=== PATIENT | female | born 1995 | race African-American/Black ===

== ENCOUNTER 2018-03-10 02:50 | Inpatient (IN) | payer OTHER ==
[2018-03-10] MEDS ORDERED: BUTORPHANOL TARTRATE 1 MG/ML VIAL IVPUSH ONE (04:10)
[2018-03-10] MEDS ORDERED: PROMETHAZINE HCL 25 MG/1 ML VIAL IVPUSH ONE (04:10)
[2018-03-10] MEDS ORDERED: ELECTROLYTE-148 SOLN 500 ML IV ONE (04:10)
[2018-03-10 04:42] LABS: BASO % 0.3 % (0-2.0); EOS % 1.6 % (0-4.5); HEMATOCRIT 37.3 % (32.4-45.2); HEMOGLOBIN 12.4 GM/dL (10.7-15.3); LYMPH % 29.3 % (8-40); MCH 32.3 pg (25.7-33.7); MCHC 33.4 g/dl (32.0-36.0); MEAN CELL VOLUME 96.9 fl (80-96); MEAN PLT VOLUME 12.8 fl (7.5-11.1); MONO % 11.5 % (3.8-10.2); NEUT % 57.3 % (42.8-82.8); PLATELET COUNT 120 K/MM3 (134-434); RBC 3.85 M/mm3 (3.60-5.2); RDW 13.7 % (11.6-15.6); WHITE BLOOD COUNT 6.7 K/mm3 (4.0-10.0)
[2018-03-10] MEDS: ELECTROLYTE-148 SOLN 1,000 ML IV SCH ×4 (05:00→16:00)
[2018-03-10 05:01] VITALS: BMI 34.7
[2018-03-10] MEDS ORDERED: BUTORPHANOL TARTRATE 1 MG/ML VIAL ONE ×2 (05:23)
[2018-03-10] MEDS ORDERED: PROMETHAZINE HCL 25 MG/1 ML VIAL ONE (05:23)
--- NOTE | 2018-03-10 06:55 | PN ---
Progress Note (short form) - Note Progress Note: cx 8 cm 100 vx -2mi , bulging , fhr cat 1, arom , clear, expect vaginal delivery
--- NOTE | 2018-03-10 07:03 | HP ---
Past Medical History - Primary Care Physician PCP:: Gilson Olmedo - Admission Chief Complaint: 39 weeks, labor, previous c/s, requesting History of Present Illness: 22 yo f 39.3weeks in labor ,previous c/s 2009 LST c/s ,in labor , requesting , aware risks of , rupture uterus, and maternal comprise, cx on admission 3 cm 80 vx -3 mi, fhr cat 1, irregular contraction History Source: Patient Limitations to Obtaining History: No Limitations - Past Medical History ...: 2 ...Para: 1 ...Term: 1 ...: 0 ...Spon : 0 ...Induced : 0 ...Multiple Gestation: 0 ...LMP: 06/09/17 ... Weeks Gestation by Dates: 39.3 ...EDC by Dates: 03/13/18 ...EDC by Sono: 03/13/18 - Past Surgical History Past Surgical History: Yes: Hx Myomectomy: No Hx Transabdominal Cerclage: No - Smoking History Smoking history: Never smoked Have you smoked in the past 12 months: No - Alcohol/Substance Use Hx Alcohol Use: No - Social History History of Recent Travel: No Home Medications - Allergies Allergies/Adverse Reactions: Allergies Allergy/AdvReac Type Severity Reaction Status Date / Time No Known Allergies Allergy Verified 01/06/18 21:41 - Home Medications Home Medications: Ambulatory Orders Iron,Carb/Vit C/Vit B12/Folic [Iron 100 Plus Tablet] 1 tab PO BID 01/06/18 19 Tablet 1 tab PO DAILY 01/06/18 Review of Systems - Review of Systems Constitutional: reports: No Symptoms Eyes: reports: No Symptoms HENT: reports: No Symptoms Neck: reports: No Symptoms Cardiovascular: reports: No Symptoms Respiratory: reports: No Symptoms Gastrointestinal: reports: No Symptoms Genitourinary: reports: No Symptoms Breasts: reports: No Symptoms Reported Musculoskeletal: reports: No Symptoms Integumentary: reports: No Symptoms Neurological: reports: No Symptoms Endocrine: reports: No Symptoms Hematology/Lymphatic: reports: No Symptoms Psychiatric: reports: No Symptoms Physical Exam - Maternity Vital Signs: Vital Signs Temperature 97.8 F 03/10/18 04:10 Pulse Rate 69 03/10/18 05:00 Respiratory Rate 20 03/10/18 05:00 Blood Pressure 135/63 03/10/18 05:00 O2 Sat by Pulse Oximetry (%) Constitutional: Yes: Well Nourished, No Distress, Calm Eyes: Yes: WNL, Conjunctiva Clear, EOM Intact HENT: Yes: WNL, Atraumatic, Normocephalic Neck: Yes: WNL, Supple, Trachea Midline Cardiovascular: Yes: WNL, Regular Rate and Rhythm Breast(s): Yes: WNL - Abdominal Exam/OB Fundal Height: 38 Number of Fetuses: Single Presentation: Vertex Contractions: Yes Regularity: Irregular Monitor Mode: External Heart Rate Location: [facility] Category: I Accelerations: Uniform Decelerations: None - Vaginal Exam/OB Vaginal Bleediing: No Speculum Exam: No Dilatation (cm): 3 cm Effacement (%): 80 Amniotic Membrane Status: Intact Presentation: Vertex/Position Station: -3 - Physical Exam Musculoskeletal: Yes: WNL Extremities: Yes: WNL Edema: LLE: Trace, RLE: Trace Deep Tendon Reflex Grade: Normal +2 ...Motor Strength: WNL Psychiatric: Yes: WNL - Labs Lab Results: CBC, BMP 03/10/18 04:30 03/10/18 04:30 Hemorrhage Risk Assessment - Risk Factors Medium Risk Factors: Yes: None High Risk Factors: Yes: None Risk Score: 1 Risk Level: Medium Risk Problem List - Problems (1) with 39 completed weeks gestation Code(s): Z3A.39 - 39 WEEKS GESTATION OF (2) Previous section complicating Code(s): O34.219 - MATERNAL CARE FOR UNSP TYPE SCAR FROM PREVIOUS DEL (3) Declines vaginal after trial Code(s): O34.219 - MATERNAL CARE FOR UNSP TYPE SCAR FROM PREVIOUS DEL Assessment/Plan admit, fhm, pain mamnagement, risks of discussed
[2018-03-10] MEDS ORDERED: FENTANYL/BUPIVACAINE/NS/PF - PCEA - 50 ML DISP.SYRIN EP ONE (08:26)
--- NOTE | 2018-03-10 08:26 | PN ---
Progress Note (short form) - Note Progress Note: cx 8 cm 100 vx -2 mr, clear, requesting episural , fhr cat 1 Problem List - Problems (1) with 39 completed weeks gestation Code(s): Z3A.39 - 39 WEEKS GESTATION OF (2) Previous section complicating Code(s): O34.219 - MATERNAL CARE FOR UNSP TYPE SCAR FROM PREVIOUS DEL (3) Declines vaginal after trial Code(s): O34.219 - MATERNAL CARE FOR UNSP TYPE SCAR FROM PREVIOUS DEL
[2018-03-10 08:55] LABS: INR 0.89 (0.83-1.09); PROTHROMBIN TIME (PATIENT) 10.5 SEC (9.7-13.0)
[2018-03-10 08:59] LABS: ACTIVATED PTT 26.1 SECONDS (25.2-36.5)
[2018-03-10 09:03] LABS: BASO % 0.2 % (0-2.0); EOS % 0.3 % (0-4.5); HEMATOCRIT 36.3 % (32.4-45.2); HEMOGLOBIN 12.2 GM/dL (10.7-15.3); LYMPH % 12.2 % (8-40); MCH 32.6 pg (25.7-33.7); MCHC 33.7 g/dl (32.0-36.0); MEAN CELL VOLUME 96.7 fl (80-96); MEAN PLT VOLUME 11.8 fl (7.5-11.1); MONO % 6.1 % (3.8-10.2); NEUT % 81.2 % (42.8-82.8); PLATELET COUNT 122 K/MM3 (134-434); RBC 3.76 M/mm3 (3.60-5.2); RDW 13.9 % (11.6-15.6); WHITE BLOOD COUNT 8.5 K/mm3 (4.0-10.0)
[2018-03-10 09:10] LABS: ANION GAP 11 MMOL/L (8-16); BLOOD UREA NITROGEN 8 mg/dL (7-18); CALCIUM 8.6 mg/dL (8.5-10.1); CHLORIDE 106 mmol/L (98-107); CO2 22 mmol/L (21-32); CREATININE 0.6 mg/dL (0.55-1.3); GLUCOSE,RANDOM 76 mg/dL (74-106); SODIUM 139 mmol/L (136-145)
--- NOTE | 2018-03-10 13:37 | PN ---
Progress Note, Labor Vaginal Exam #3 Labor Exam Date: 03/10/18 Labor Exam Time: 13:32 Heart Rate (range): Cat II Dilatation: 10 Effacement (%): 100 Amniotic Membrane Status: Ruptured Station: 0 Remarks: Cat II tracing with intermittent variable decelerations, moderate variability throughout Attempted pushing x 10 minutes with no descent Will give IV bolus, labor down and reasses in one hour Austin Ribeiro MD
--- NOTE | 2018-03-10 14:13 | PN ---
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 fhr cat 1 Problem List - Problems (1) with 39 completed weeks gestation Code(s): Z3A.39 - 39 WEEKS GESTATION OF (2) Previous section complicating Code(s): O34.219 - MATERNAL CARE FOR UNSP TYPE SCAR FROM PREVIOUS DEL (3) Declines vaginal after trial Code(s): O34.219 - MATERNAL CARE FOR UNSP TYPE SCAR FROM PREVIOUS DEL
--- NOTE | 2018-03-10 14:57 | PN ---
Progress Note, Labor Vaginal Exam #3 Labor Exam Date: 03/10/18 Labor Exam Time: 14:54 Heart Rate (range): Cat II Dilatation: 10 Effacement (%): 0 Amniotic Membrane Status: Ruptured Station: 0 Remarks: Cat II tracing, tachycardia now No descent, still 0 station Will start pushing, but low suspicion of successful TOLAC
--- NOTE | 2018-03-10 15:39 | PN ---
Progress Note, Labor Vaginal Exam #4 Labor Exam Date: 03/10/18 Labor Exam Time: 15:36 Heart Rate (range): Cat II Dilatation: 10 Effacement (%): 100 Amniotic Membrane Status: Ruptured Station: 0 Remarks: Called by RN, patient REFUSED to push. Now asking for Persistent Cat II tracing, failure to descend, maternal refusal to cooperate and try pushing. Will proceed to OR for RLTCS
[2018-03-10] MEDS ORDERED: CITRIC ACID/SODIUM CITRATE 30 ML UNIT-DOSE CUP PO ONE (15:42)
[2018-03-10] MEDS ORDERED: CEFAZOLIN 2 GM/D5W 2 GM/50 ML ML IVPB ONE (15:43)
[2018-03-10] MEDS ORDERED: OXYTOCIN 10 UNITS/ML VIAL ONE (15:47)
[2018-03-10] MEDS ORDERED: OXYTOCIN 20 UNITS in 0.9% NS 20 UNIT/1,000 ML INFUS.BAG IV ONE (15:47)
[2018-03-10] MEDS ORDERED: morphine SULFATE/Preservative Free 0.5 MG/ML (1cc Syringe) ONE (15:50)
[2018-03-10] MEDS ORDERED: PHENYLEPHRINE HCL 10 MG/1 ML SINGLE DOSE VIAL ONE (15:56)
[2018-03-10] MEDS ORDERED: ONDANSETRON 4 MG/2 ML VIAL IVPUSH PRN (16:48)
[2018-03-10] MEDS ORDERED: KETOROLAC TROMETHAMINE 30 MG/1 ML VIAL ONE (17:03)
[2018-03-10] MEDS ORDERED: IBUPROFEN 800 MG/8 ML IJ IVPB PRN (17:31)
[2018-03-10] MEDS ORDERED: METHYLERGONOVINE MALEATE 0.2 MG/1 ML AMP IM PRN (17:31)
--- NOTE | 2018-03-10 17:31 | OP ---
Operative Note - Note: Operative Date: 03/10/18 Pre-Operative Diagnosis: Failure to Descend, maternal exhaustion Operation: Repeat Low Transverse Section Findings: VMI, MADIE, no nuchal or meconium, Weight 7.5lbs, Apgars 9/9. Tubes and ovaries not visualized bilaterally secondary to adhesions Intact bladder Post-Operative Diagnosis: Same as Pre-op Surgeon: Elena Ribeiro Superintendent Drivers: Liset Nelson Anesthesia: Spinal Estimated Blood Loss (mls): 700 Operative Report Dictated: Yes
[2018-03-10] MEDS ORDERED: OXYTOCIN 20 UNITS in 0.9% NS 20 UNIT/1,000 ML INFUS.BAG IV SCH (17:45)
[2018-03-10] MEDS ORDERED: FLU VACCINE QUAD 60 MCG/0.5 ML (MDV 18-19) IM ONE (19:56)
[2018-03-10] MEDS: FERROUS SO4 325 MG TABLET (FP) PO SCH (21:55)
[2018-03-11] MEDS: ACETAMINOPHEN 325 MG TABLET (FP) PO PRN (04:10)
[2018-03-11 08:14] LABS: BASO % 0.1 % (0-2.0); EOS % 0.1 % (0-4.5); HEMATOCRIT 27.7 % (32.4-45.2); HEMOGLOBIN 9.7 GM/dL (10.7-15.3); LYMPH % 12.1 % (8-40); MCH 34.1 pg (25.7-33.7); MCHC 34.9 g/dl (32.0-36.0); MEAN CELL VOLUME 97.6 fl (80-96); MEAN PLT VOLUME 12.1 fl (7.5-11.1); MONO % 7.5 % (3.8-10.2); NEUT % 80.2 % (42.8-82.8); PLATELET COUNT 96 K/MM3 (134-434); RBC 2.84 M/mm3 (3.60-5.2); RDW 14.1 % (11.6-15.6); WHITE BLOOD COUNT 5.5 K/mm3 (4.0-10.0)
[2018-03-11] MEDS: FERROUS SO4 325 MG TABLET (FP) PO SCH ×2 (08:33→17:17)
--- NOTE | 2018-03-11 08:59 | PN ---
Progress Note (short form) - Note Progress Note: ANESTHESIOLOGY POST-OP CHECK 22F s/p under spinal anesthesia, POD #1: no acute complaints, denies N /V, BA/GAINES, numbness, weakness. pain 4/10 and tolerable. Vital Signs Temperature 99.6 F 03/11/18 08:52 Pulse Rate 93 H 03/11/18 08:52 Respiratory Rate 20 03/11/18 08:52 Blood Pressure 114/59 L 03/11/18 08:52 O2 Sat by Pulse Oximetry (%) 100 03/10/18 19:15 Active Medications Acetaminophen (Tylenol -) 650 mg PO Q4H PRN PRN Reason: FEVER Last Admin: 03/11/18 04:10 Dose: 650 mg Diphenhydramine HCl (Benadryl Injection -) 25 mg IVPUSH Q4H PRN PRN Reason: Pruritis Ferrous Sulfate (Feosol -) 325 mg PO BIDWM [facility] Last Admin: 03/11/18 08:33 Dose: Not Given Parenteral Electrolytes (Plasma-Lyte 148 -) 1,000 mls @ 125 mls/hr IV ASDIR [facility] Last Admin: 03/10/18 10:30 Dose: 125 mls/hr Oxytocin/Sodium Chloride (Normal Saline+20 Units Oxytocin -) 20 unit in 1,000 mls @ 125 mls/hr IV ASDIR [facility] Ibuprofen (Motrin -) 600 mg PO Q4H PRN PRN Reason: PAIN LEVEL 1 - 3 Ibuprofen (Caldolor Injection -) 800 mg IVPB Q8H PRN PRN Reason: PAIN LEVEL 7 - 10 Last Admin: 03/11/18 08:31 Dose: 800 mg Influenza Virus Vaccine Quadrival (Flulaval Quad [id number]) 60 mcg IM .ONCE ONE Stop: 03/12/18 10:01 Methylergonovine Maleate (Methergine Injection -) 0.2 mg IM Q4H PRN PRN Reason: Excessive Bleeding (L&D) Ondansetron HCl (Zofran Injection) 4 mg IVPUSH Q4H PRN PRN Reason: NAUSEA Stop: 03/12/18 03:00 Oxycodone HCl (Roxicodone -) 5 mg PO Q4H PRN PRN Reason: PAIN LEVEL 4 - 6 Multivit/Folic Acid/Iron ( Vitamins (Sjr) -) 1 tab PO DAILY KARRI Simethicone (Mylicon -) 80 mg PO Q4H PRN PRN Reason: GAS Gen: awake, alert Ext: No motor or sensory deficits of B/L lower ext No apparent anesthesia complications. Pain controlled. Continue management as per primary team.
[2018-03-11] MEDS: PRENATAL VITAMINS W/ FOLIC ACID TABLET (FP) PO SCH (09:45)
--- NOTE | 2018-03-11 11:01 | OP ---
DATE OF OPERATION: 03/10/2018 PREOPERATIVE DIAGNOSIS: A 39-week , prior delivery, failure to descend, maternal exhaustion. POSTOPERATIVE DIAGNOSIS: A 39-week , prior delivery, failure to descend, maternal exhaustion. PROCEDURE: Repeat low transverse section. ANESTHESIA: Spinal. SURGEON: Elena Ribeiro MD TIME STUDY OBSERVER: LETA Miles ESTIMATED BLOOD LOSS: 700. IV FLUIDS: Per anesthesia record. URINE OUTPUT: 400 mL although 300 was used to backfill the bladder. FINDINGS: Viable male , MADIE, weight 7 pounds 5 ounces, Apgars 9 and 9. No nuchal. No meconium. Tubes and ovaries not visualized secondary to dense adhesions. COMPLICATIONS: Suspected bladder laceration, however, intact bladder upon backfilling. CONDITION: Stable to PACU. DESCRIPTION OF PROCEDURE: After appropriate consents were signed, the patient was taken to the operating room. She had an intrathecal placed during labor, which was now used for spinal anesthesia administration. The patient did progress to 10 cm but refused to push and asked for a delivery thus the indication for delivery. There was no descent beyond 0 station to the pelvis. Once in the OR, the patient was placed in supine position. Marks catheter was already placed during labor. There was blood-tinged fluid in the Marks catheter prior to the start of the procedure. The abdomen was prepped and draped in the normal sterile fashion. A Pfannenstiel incision was made after time-out was performed. The incision was carried through to the underlying layers until the fascia was nicked in the midline. The fascia was extended laterally with the Padgett scissors. Inferior aspect of the fascia was grasped, elevated with the Kali clamps, tented upward, and the rectus muscles were dissected off bluntly with the Padgett scissors. Attention was then paid to the superior aspect, which was taken down in a similar fashion. Rectus muscles are grasped in the midline with the Kali clamps, elevated using a scalpel. They were incised in the midline and bluntly. The peritoneum appeared thickened and was grasped with 2 hemostats, tented upwards, and entered with a scalpel needle. It was then extended bilaterally. There were dense adhesions from the anterior abdominal wall bilaterally on the uterine sidewalls. Bladder blade was inserted. An incision was made in the lower uterine segment but well above the bladder given she had been laboring. Clear amniotic fluid was noted. The incision was then extended bluntly. The infant head was delivered without difficulty as was the remaining part. The cord was clamped and cut. The was bulb suctioned on the operating table and then handed over to the pediatric staff. The placenta was removed manually. The uterus was cleared of clot and debris. The uterus was closed in a single layer with good hemostasis. An attempt was made to try to inspect both adnexa; however, there appeared to be adhesions. The adnexa could not be seen nor palpated. Attention was then paid back to the hysterotomy, which had an area in the midline that was bleeding. This was reinforced with a 0 Vicryl with good control. There was suspicion of a potential bladder injury secondary to what appeared like urine fluid coming from the hysterotomy. At the direction of a urologist, the bladder was backfilled with 300 mL of normal saline. Bladder appeared intact. No leakage was appreciated. The hysterotomy remained hemostatic. The marks had previously had blood tinged fluid even before entry to the OR. After backfilling, no further blood tinged fluid was noted. The muscles were then reapproximated with a 2-0 chromic. Fascia was reapproximated with 0 Vicryl. Subcutaneous tissue was reapproximated with 3-0 chromic. Skin was closed with 4-0 Biosyn. Steri-Strips and dressing were applied. Sponge count, needle count, lap count was correct x3. The patient did receive 2 g of Ancef at the start of the procedure. She was taken to the recovery room in stable condition. MD ANUPAM MATHIS/[id number] MTDD
--- NOTE | 2018-03-11 11:52 | PN ---
Post Progress Note Type of Delivery: Repeat C/S Vital Signs: Vital Signs Temperature 99.6 F 03/11/18 08:52 Pulse Rate 93 H 03/11/18 08:52 Respiratory Rate 20 03/11/18 10:00 Blood Pressure 114/59 L 03/11/18 08:52 O2 Sat by Pulse Oximetry (%) 100 03/10/18 19:15 Uterus: Yes: Fundus Firm Incision: Yes: Dressing dry and intact Abdomen/GI: Yes: Abdomen soft Lochia: Yes: Rubra Lochia, amount: Small Extremities: Yes: Calves non-tender Activity: Ambulating - Labs Labs: CBC WBC 5.5 K/mm3 (4.0-10.0) 03/11/18 07:00 RBC 2.84 M/mm3 (3.60-5.2) L 03/11/18 07:00 Hgb 9.7 GM/dL (10.7-15.3) L 03/11/18 07:00 Hct 27.7 % (32.4-45.2) L D 03/11/18 07:00 MCV 97.6 fl (80-96) H 03/11/18 07:00 MCH 34.1 pg (25.7-33.7) H 03/11/18 07:00 MCHC 34.9 g/dl (32.0-36.0) 03/11/18 07:00 RDW 14.1 % (11.6-15.6) 03/11/18 07:00 Plt Count 96 K/MM3 (134-434) L D 03/11/18 07:00 MPV 12.1 fl (7.5-11.1) H 03/11/18 07:00 Absolute Neuts (auto) 4.4 K/mm3 (1.5-8.0) 03/11/18 07:00 Neutrophils % 80.2 % (42.8-82.8) 03/11/18 07:00 Lymphocytes % 12.1 % (8-40) 03/11/18 07:00 Monocytes % 7.5 % (3.8-10.2) 03/11/18 07:00 Eosinophils % 0.1 % (0-4.5) 03/11/18 07:00 Basophils % 0.1 % (0-2.0) 03/11/18 07:00 Nucleated RBC % 0 % (0-0) 03/11/18 07:00 Assessment/Plan 22yo s/p RLTCS, POD#1 Routine PP care OOB, ambulate Labs reviewed Anticipate d/c to home by POD#4 Austin Ribeiro MD
[2018-03-11] MEDS: oxyCODONE HCL 5 MG TABLET PO PRN ×2 (13:38→18:51)
[2018-03-11] MEDS: SIMETHICONE 80 MG TAB.CHEW (FP) PO PRN ×2 (13:38→18:51)
[2018-03-11] MEDS: IBUPROFEN 600 MG TABLET (FP) PO PRN ×2 (13:38→18:51)
[2018-03-12] MEDS: SIMETHICONE 80 MG TAB.CHEW (FP) PO PRN ×3 (04:33→15:56)
[2018-03-12] MEDS: ACETAMINOPHEN 325 MG TABLET (FP) PO PRN ×3 (04:33→15:56)
[2018-03-12] MEDS: oxyCODONE HCL 5 MG TABLET PO PRN ×3 (04:33→15:56)
[2018-03-12] MEDS: FERROUS SO4 325 MG TABLET (FP) PO SCH ×2 (08:27→17:30)
[2018-03-12] MEDS: PRENATAL VITAMINS W/ FOLIC ACID TABLET (FP) PO SCH (09:42)
--- NOTE | 2018-03-12 19:01 | PN ---
Post Progress Note Type of Delivery: Repeat C/S Vital Signs: Vital Signs Temperature 99 F 03/12/18 08:54 Pulse Rate 86 03/12/18 08:54 Respiratory Rate 20 03/12/18 08:54 Blood Pressure 116/66 03/12/18 08:54 O2 Sat by Pulse Oximetry (%) 100 03/10/18 19:15 Uterus: Yes: Fundus below umbilicus Incision: Yes: Dressing dry and intact Abdomen/GI: Yes: Abdomen soft Lochia: Yes: Rubra Lochia, amount: Small Extremities: Yes: Calves non-tender Activity: Ambulating - Labs Labs: CBC WBC 5.5 K/mm3 (4.0-10.0) 03/11/18 07:00 RBC 2.84 M/mm3 (3.60-5.2) L 03/11/18 07:00 Hgb 9.7 GM/dL (10.7-15.3) L 03/11/18 07:00 Hct 27.7 % (32.4-45.2) L D 03/11/18 07:00 MCV 97.6 fl (80-96) H 03/11/18 07:00 MCH 34.1 pg (25.7-33.7) H 03/11/18 07:00 MCHC 34.9 g/dl (32.0-36.0) 03/11/18 07:00 RDW 14.1 % (11.6-15.6) 03/11/18 07:00 Plt Count 96 K/MM3 (134-434) L D 03/11/18 07:00 MPV 12.1 fl (7.5-11.1) H 03/11/18 07:00 Absolute Neuts (auto) 4.4 K/mm3 (1.5-8.0) 03/11/18 07:00 Neutrophils % 80.2 % (42.8-82.8) 03/11/18 07:00 Lymphocytes % 12.1 % (8-40) 03/11/18 07:00 Monocytes % 7.5 % (3.8-10.2) 03/11/18 07:00 Eosinophils % 0.1 % (0-4.5) 03/11/18 07:00 Basophils % 0.1 % (0-2.0) 03/11/18 07:00 Nucleated RBC % 0 % (0-0) 03/11/18 07:00 Assessment/Plan 22yo s/p RLTCS, POD#2 Routine PP care OOB, ambulate Labs reviewed Anticipate d/c to home by POD#4 Austin Ribeiro MD
[2018-03-13] MEDS: oxyCODONE HCL 5 MG TABLET PO PRN ×2 (02:13→08:22)
[2018-03-13] MEDS: ACETAMINOPHEN 325 MG TABLET (FP) PO PRN ×2 (02:13→08:22)
[2018-03-13] MEDS: SIMETHICONE 80 MG TAB.CHEW (FP) PO PRN ×2 (02:13→08:23)
[2018-03-13 08:01] LABS: BASO % 0.1 % (0-2.0); EOS % 0.3 % (0-4.5); HEMATOCRIT 26.7 % (32.4-45.2); HEMOGLOBIN 9.4 GM/dL (10.7-15.3); LYMPH % 9.6 % (8-40); MCHC 35.1 g/dl (32.0-36.0); MEAN CELL VOLUME 96.8 fl (80-96); MEAN PLT VOLUME 11.1 fl (7.5-11.1); MONO % 5.9 % (3.8-10.2); NEUT % 84.1 % (42.8-82.8); PLATELET COUNT 169 K/MM3 (134-434); RBC 2.76 M/mm3 (3.60-5.2); RDW 14.1 % (11.6-15.6); WHITE BLOOD COUNT 13.2 K/mm3 (4.0-10.0)
[2018-03-13] MEDS: FERROUS SO4 325 MG TABLET (FP) PO SCH (08:23)
[2018-03-13 09:08] VITALS: BP 135/75; PULSE 80; TEMP 98.6
[2018-03-13] MEDS: PRENATAL VITAMINS W/ FOLIC ACID TABLET (FP) PO SCH (10:00)
--- NOTE | 2018-03-13 11:39 | DS ---
Physical Examination Vital Signs: Vital Signs Temperature 98.6 F 03/13/18 08:10 Pulse Rate 80 03/13/18 08:10 Respiratory Rate 20 03/13/18 08:10 Blood Pressure 135/75 03/13/18 08:10 O2 Sat by Pulse Oximetry (%) 100 03/10/18 19:15 Constitutional: Yes: Well Nourished, No Distress, Calm Eyes: Yes: WNL, Conjunctiva Clear, EOM Intact HENT: Yes: WNL, Atraumatic, Normocephalic Neck: Yes: WNL, Supple, Trachea Midline Cardiovascular: Yes: WNL, Regular Rate and Rhythm Respiratory: Yes: WNL, Regular, CTA Bilaterally Gastrointestinal: Yes: WNL, Normal Bowel Sounds Musculoskeletal: Yes: WNL Extremities: Yes: WNL Edema: No Integumentary: Yes: WNL Neurological: Yes: WNL, Alert, Oriented ...Motor Strength: WNL Psychiatric: Yes: WNL Labs: CBC, BMP 03/13/18 07:10 03/10/18 07:30 Discharge Summary Reason For Visit: LABOR ADMIT Current Active Problems Declines vaginal after trial (Acute) with 39 completed weeks gestation (Acute) Previous section complicating (Acute) Procedures: Principal: Repeat C/S Hospital Course: Pt presented in active labor, however declined to push when was fully dilated. Requested repeat Delivery Has had an uncomplicated course Discharged home on POD#3 Condition: Stable - Instructions Diet, Activity, Other Instructions: Regular Diet If pain, fever, or heavy bleeding, call M.D. If any redness or drainage noted to incision, call M.D. Call [facility] and make appt. to be seen in one week. [facility]: [phone] Disposition: HOME - Home Medications Comprehensive Discharge Medication List: Ambulatory Orders Iron,Carb/Vit C/Vit B12/Folic [Iron 100 Plus Tablet] 1 tab PO BID 01/06/18 19 Tablet 1 tab PO DAILY 01/06/18 Ibuprofen 600 mg PO Q6H PRN #30 tablet 03/13/18 Oxycodone HCl/Acetaminophen [Percocet 5-325 mg Tablet -] 1 - 2 tab PO Q6H PRN # 20 tab MDD 4 03/13/18
--- NOTE | 2018-03-13 21:38 | SURG ---
Surgery Placement Assistant Note Placement Assistant: Liset Nelson PA-C Date of Service: 03/10/18 Diagnosis: Failure to Descend, maternal exhaustion Procedure: Repeat Low Transverse Section I was present for the entirety of the operative procedure. For further detail, please refer to operative report. Visit type - Case Type Case Type: ED Admission - Emergency Emergency Visit: Yes ED Registration Date: 03/10/18 Care time: The patient presented to the Emergency Department on the above date and was hospitalized for further evaluation of their emergent condition. - New patient This patient is new to me today: Yes Date on this admission: 03/10/18
--- NOTE | 2018-03-15 11:27 | CONS ---
DATE OF CONSULTATION: 03/10/2018 INTRAOPERATIVE CONSULT: Patient is on the OR table undergoing her second section. I was called in for possible bladder pathology. I scrubbed in and examined the open abdomen. The uterus was intact. The wall of the bladder appeared intact. Serosal layer appeared normal and not disruptive. Retropubic space was empty with no pathology. A Gonzalez catheter was palpated in the bladder base. The nurse was then instructed to distend the bladder with 300 mL of normal saline and to clamp the Gonzalez. This was done. Inspection of the bladder revealed no extravasation or leakage of urine. Therefore, the Gonzalez was unclamped and the bar supervisor was reassured that there was no bladder pathology. Luz [id number]
--- NOTE | 2018-03-16 15:25 | PATH ---
Surgical Pathology Report Patient Name: SHALONDA VIRK [facility]. Rec. #: [id number] /Age/Gender: 1995 (Age: 22) / F Account: [id number] Location: [facility] OBS/HRIS COORDINATOR Taken: 03/10/2018 Received: 03/13/2018 Reported: 03/16/2018 Physicians: Elena Olmedo M.D. Specimen(s) Received PLACENTA Clinical History , 39.3 weeks, failure to descend Final Diagnosis PLACENTA: THIRD TRIMESTER PLACENTA WITH ACUTE CHORIOAMNIONITIS AND STEM VESSEL VASCULITIS. TRIVASCULAR CORD. Electronically Signed Mandi Navarro M.D. Gross Description The specimen is received fresh labeled placenta and is a 469 gram, 19.0 x 18.0 x 2.1 cm. placenta with attached membranes and umbilical cord. The attached membranes are madrigal, translucent with focal opacities and insert marginally. The umbilical cord measures 35 cm. in length and averages 1.1 cm. in diameter. The cord inserts centrally. No true knots or strictures are identified. Cut surface of the umbilical cord reveals 3 vessels. The surface is new-blue with minimal fibrin deposition and appropriate caliber vessels. The maternal surface is red-brown with focal defects. Sectioning reveals red-brown, spongy parenchyma. No lesions are identified. Photo Studio Assistant sections are submitted in three cassettes as follows: 1- membrane rolls and umbilical cord; 2-3- full thickness sections of placenta. 03/15/2018 saudi03/15/2018
== END 2018-03-13 15:30 | disposition home or self-care (01) | DRG 540 ==
LOC: JDEL 02:50 → JLDR 04:10 → J3W 19:50
PROVIDERS: ADMIT Obstetrics & Gynecology; ATTEND Obstetrics & Gynecology
PROC: 10D00Z1 Extraction of Products of Conception, Low, Open Approach (ICD-10-PCS; principal; 2018-03-10)
DX: O75.81 Maternal exhaustion complicating labor and delivery (principal); O34.211 Maternal care for low transverse scar from previous cesarean delivery; O62.1 Secondary uterine inertia; Z3A.39 39 weeks gestation of pregnancy; Z37.0 Single live birth
CPT/HCPCS: 36415; 80048; 85025; 85610; 85730; 86593; 86850; 86900; 86901; 88307-TC; 90686; G0008

== ENCOUNTER 2018-03-19 02:56 | Emergency (ER) | payer OTHER ==
[2018-03-19 03:13] VITALS: BMI 30.1
--- NOTE | 2018-03-19 03:38 | PDOC ---
Attending Attestation - Resident Resident Name: Nikki Sequeira - ED Attending Attestation I have performed the following: I have examined & evaluated the patient, The case was reviewed & discussed with the resident, I agree w/resident's findings & plan - HPI HPI: 03/19/18 04:07 c section 1 week ago; now with open wound at the right end of the scar with pus like serosanguinous drainage. (We sent off wound culture.) The area was squeezed and we expressed 3ml fluid; no more came out. Pt was then wiped with alcohol swabs and fresh steristrips applied. - Physicial Exam PE: 03/19/18 04:15 Agree with resident exam. Pt is in no distress. Pt has no fever. - Medical Decision Making 03/19/18 04:38 Pt has a wound culture in the lab; we will likely treat her with keflex, as she is trying to breast feed. However we will ask Dr. Ribeiro what abx she prefers. Pt's CBC and chem are pending. 03/19/18 06:38 Pt will be treated empirically with amoxil, as it is good for beta hemolytic strep coverage and pt can breastfeed with it, and it has fewer complications for the baby than keflex. We tried to contact Dr. Ribeiro, but she never called back. 03/19/18 06:39 Pt's WBC is 14, however, her last WBC form last week was 13. Heart Score/ECG Review - ECG Intrepretation Rhythm: Regular Rhythm - [place]: Normal - P and OK Delta Wave(s) Present: No WPW: No - ST and T Early Repolarization: No Non Specific ST-T Wave changes: No - ECG Impressions Normal ECG: Yes Non-specific ST Elevation: No Ischemic Changes: No Bradycardia: No Torsades efe Pointes: No WPW: No
--- NOTE | 2018-03-19 03:56 | PDOC ---
History of Present Illness - General Chief Complaint: Wound Stated Complaint: C SECTION DRAINAGE Time Seen by Provider: 03/19/18 03:36 - History of Present Illness Initial Comments: 22yo F with recent on 03/10/18 presenting with drainage from her c- section surgical site. Her wedding day coordinator is Dr. Elena Ribeiro. Patient first noticed this drainage two hours prior to arrival. No tenderness to the area. No fevers, chills, chest pain, or shortness of breath. Past History - Past Medical History Allergies/Adverse Reactions: Allergies Allergy/AdvReac Type Severity Reaction Status Date / Time No Known Allergies Allergy Verified 03/19/18 03:11 Home Medications: Ambulatory Orders Ibuprofen 600 mg PO Q6H PRN #30 tablet 03/13/18 Oxycodone HCl/Acetaminophen [Percocet 5-325 mg Tablet -] 1 - 2 tab PO Q6H PRN # 20 tab MDD 4 03/13/18 Amoxicillin - [Amoxicillin 500mg Capsule -] 500 mg PO TID #21 capsule 03/19/18 Asthma: No Cancer: No Cardiac Disorders: No COPD: No Diabetes: No HTN: No Seizures: No Thyroid Disease: No - Suicide/Smoking/Psychosocial Hx Smoking History: Never smoked Have you smoked in the past 12 months: No Information on smoking cessation initiated: No Hx Alcohol Use: No Drug/Substance Use Hx: No Hx Substance Use Treatment: No Review of Systems - Review of Systems Comments:: Constitutional: no fever, no chills HEENT: no throat pain, no dysphagia Cardiovascular: no chest pain, no palpitations Respiratory: no cough, no shortness of breath Gastrointestinal: no abdominal pain, no nausea, no vomiting Genitourinary: no dysuria, no frequency Musculoskeletal: +leg pain, no arthralgia Skin: no rash, no itching Neurologic: +headache, no dizziness *Physical Exam - Vital Signs Last Vital Signs Temp Pulse Resp BP Pulse Ox 98.2 F 76 20 133/78 99 03/19/18 03:12 03/19/18 03:12 03/19/18 03:12 03/19/18 03:12 03/19/18 03:12 - Physical Exam Comments: General: Awake, alert, and fully oriented, in no acute distress Head: atraumatic Eyes: EOMI, sclera anicteric ENT: Moist mucus membranes Neck: Normal ROM, supple Lungs: Lungs clear, Normal breath sounds Cardio: Regular rhythm, S1 and S2 present Abdomen: Soft, nontender. No guarding, no rebound, no masses; site draining serosanguinous fluid, about 5cc expressed; no erythema, induration, or tenderness Extremities: Normal range of motion, Distal pulses present SKIN: Warm, Dry, normal turgor Neurologic: Cranial nerves II through XII grossly intact. Normal speech ED Treatment Course - LABORATORY CBC & Chemistry Diagram: 03/19/18 04:53 03/19/18 04:53 Medical Decision Making - Medical Decision Making 22yo F with recent on 03/10/18 presenting with drainage from her c- section surgical site -Presentation consistent with draining seroma -Labs -Surgical site cleaned and steri-strips re-applied -Plan to discuss case with Dr. Ribeiro 03/19/18 04:29 WBC=14.6, elevation from 13.2 on 03/13/18 Paged on-call physician for Dr. Ribeiro, but did not receive call back. Second page sent 03/19/18 06:08 Did not receive call back. Treating with Amoxicillin 500. Prescription sent to pharmacy. Patient discharged. Instructed to follow-up with wedding day coordinator. 03/19/18 06:49 *DC/Admit/Observation/Transfer Diagnosis at time of Disposition: section wound seroma, - Discharge Dispostion Disposition: HOME Condition at time of disposition: Stable - Prescriptions Prescriptions: Amoxicillin - [Amoxicillin 500mg Capsule -] 500 mg PO TID #21 capsule - Referrals - Patient Instructions Additional Instructions: You came to the ED for drainage from your site. Labs were unremarkable. Antibiotics prescription sent to your pharmacy. Follow-up with your wedding day coordinator physician in the next 2-3 days. Seek medical attention if any of the following occur: -Fever or chills -Pain, redness, or swelling at the surgical site -Red streaks If you think you are having an emergency, call for emergency medical services or present to the emergency department right away. - Post Discharge Activity
[2018-03-19 05:02] LABS: BASO % 0.3 % (0-2.0); HEMATOCRIT 29.9 % (32.4-45.2); HEMOGLOBIN 9.9 GM/dL (10.7-15.3); LYMPH % 12.8 % (8-40); MCH 31.6 pg (25.7-33.7); MCHC 33.2 g/dl (32.0-36.0); MEAN CELL VOLUME 95.2 fl (80-96); MEAN PLT VOLUME 8.2 fl (7.5-11.1); NEUT % 80.9 % (42.8-82.8); PLATELET COUNT 321 K/MM3 (134-434); RBC 3.14 M/mm3 (3.60-5.2); RDW 13.8 % (11.6-15.6); WHITE BLOOD COUNT 14.6 K/mm3 (4.0-10.0)
[2018-03-19 05:37] LABS: ALBUMIN 2.5 g/dl (3.4-5.0); ALK PHOS 108 U/L (45-117); ANION GAP 8 MMOL/L (8-16); BILIRUBIN,TOTAL 0.7 mg/dL (0.2-1); BLOOD UREA NITROGEN 8 mg/dL (7-18); CALCIUM 8.6 mg/dL (8.5-10.1); CHLORIDE 106 mmol/L (98-107); CO2 27 mmol/L (21-32); CREATININE 0.6 mg/dL (0.55-1.3); GLUCOSE,RANDOM 82 mg/dL (74-106); POTASSIUM 3.8 mmol/L (3.5-5.1); SGOT/AST 15 U/L (15-37); SGPT/ALT 10 U/L (13-61); SODIUM 140 mmol/L (136-145); TOT PROT 6.6 g/dl (6.4-8.2)
[2018-03-19 05:49] LABS: PLATELET ESTIMATE ADEQUATE
[2018-03-19] MEDS ORDERED: AMOXICILLIN 500 MG CAPSULE (FP) PO ONE (06:38)
[2018-03-19 06:52] VITALS: BP 136/78; PULSE 88; TEMP 98.6
--- NOTE | 2018-03-19 18:49 | EKG ---
Test Reason : Blood Pressure : / mmHG Vent. Rate : 061 BPM Atrial Rate : 061 BPM P-R Int : 152 ms QRS Dur : 090 ms QT Int : 396 ms P-R-T Axes : -07 084 030 degrees QTc Int : 398 ms NORMAL SINUS RHYTHM NORMAL ECG NO PREVIOUS ECGS AVAILABLE Confirmed by JEFFERY GRIFFIN MD ([id number]) on 03/19/2018 6:49:14 PM Referred By: Confirmed By:JEFFERY GRIFFIN MD
== END 2018-03-19 06:52 | disposition home or self-care (01) ==
LOC: JER 02:56
DX: O90.89 Other complications of the puerperium, not elsewhere classified (principal); O90.2 Hematoma of obstetric wound
CPT/HCPCS: 36415; 80053; 85025; 87070; 87077; 87186; 87205; 93005; 93010; 99282-25

== ENCOUNTER 2020-06-18 10:26 | Emergency (ER) | payer OTHER ==
[2020-06-18 10:44] VITALS: BMI 24.7
[2020-06-18] MEDS ORDERED: SODIUM CHLORIDE 1,000 ML IV STA (11:18)
[2020-06-18] MEDS ORDERED: METOCLOPRAMIDE HCL INJECTION 10 MG/2 ML VIAL IVPB ONE (11:18)
[2020-06-18] MEDS ORDERED: ACETAMINOPHEN 1000 MG/100 ML VIAL (NON FORMULARY) IVPB ONE (11:18)
[2020-06-18] MEDS ORDERED: METOCLOPRAMIDE HCL INJECTION 10 MG/2 ML VIAL ONE (11:19)
[2020-06-18] MEDS ORDERED: ACETAMINOPHEN INJECTION 100 ML IVPB ONE (11:21)
[2020-06-18 11:41] VITALS: BP 122/73; PULSE 74; TEMP 98.2
[2020-06-18 11:55] LABS: BASO % 0.5 % (0-2.0); EOS % 0.5 % (0-4.5); HEMATOCRIT 38.8 % (32.4-45.2); HEMOGLOBIN 13.3 GM/dL (10.7-15.3); LYMPH % 22.9 % (8-40); MCH 32.2 pg (25.7-33.7); MCHC 34.3 g/dl (32.0-36.0); MEAN CELL VOLUME 93.9 fl (80-96); MONO % 9.9 % (3.8-10.2); NEUT % 66.2 % (42.8-82.8); PLATELET COUNT 228 K/MM3 (134-434); RBC 4.13 M/mm3 (3.60-5.2); RDW 12.5 % (11.6-15.6); WHITE BLOOD COUNT 6.3 K/mm3 (4.0-10.0)
[2020-06-18 12:22] LABS: POTASSIUM 3.7 mmol/L (3.5-5.1)
[2020-06-18 12:25] LABS: ALBUMIN 4.4 g/dl (3.4-5.0); CALCIUM 9.5 mg/dL (8.5-10.1)
[2020-06-18 12:26] LABS: BLOOD UREA NITROGEN 9.4 mg/dL (7-18)
[2020-06-18 12:29] LABS: CREATININE 0.7 mg/dL (0.55-1.3)
[2020-06-18 12:30] LABS: BILIRUBIN,TOTAL 1.6 mg/dL (0.2-1); TOT PROT 8.4 g/dl (6.4-8.2)
[2020-06-18 12:43] LABS: EPI CELLS >36 /uL (0-25.1); HYALINE CASTS 13 /uL (0-3.1); PH,URINE 5.5 (5.0-8.0); URINE APPEARANCE TURBID; URINE BACTERIA 4508 /uL (0-1359); URINE BILIRUBIN 1+ (NEGATIVE); URINE COLOR DK YELLOW; URINE GLUCOSE (UA) NEGATIVE (NEGATIVE); URINE KETONE 4+ (NEGATIVE); URINE LEUK ESTERASE NEGATIVE (NEGATIVE); URINE NITRITE NEGATIVE (NEGATIVE); URINE PROTEIN 1+ (NEGATIVE); URINE RBC 26 /uL (0-23.9)
== END 2020-06-18 13:52 | disposition home or self-care (01) ==
LOC: JER 10:26
PROC: 3E033NZ Introduction of Analgesics, Hypnotics, Sedatives into Peripheral Vein, Percutaneous Approach (ICD-10-PCS; principal; 2020-06-18)
PROC: 3E033GC Introduction of Other Therapeutic Substance into Peripheral Vein, Percutaneous Approach (ICD-10-PCS; 2020-06-18)
PROC: 3E0337Z Introduction of Electrolytic and Water Balance Substance into Peripheral Vein, Percutaneous Approach (ICD-10-PCS; 2020-06-18)
DX: R51.9 Headache, unspecified (principal); Z3A.10 10 weeks gestation of pregnancy
CPT/HCPCS: 36415; 80053; 81003; 85025; 87086; 99285-25; J0131

== ENCOUNTER 2020-07-16 08:24 | Emergency (ER) | payer OTHER ==
[2020-07-16 08:29] VITALS: BP 140/86; PULSE 72; TEMP 97.9; BMI 30.2
== END 2020-07-16 08:59 | disposition home or self-care (01) ==
LOC: JER 08:24
DX: O26.891 Other specified pregnancy related conditions, first trimester (principal); R09.81 Nasal congestion; Z3A.10 10 weeks gestation of pregnancy; Z11.52 Encounter for screening for COVID-19
CPT/HCPCS: 99283-25; C9803; U0003

== ENCOUNTER 2021-02-04 13:30 | Inpatient (IN) | payer OTHER ==
[2021-02-04] MEDS ORDERED: ELECTROLYTE-148 SOLN 500 ML IV ONE (13:45)
[2021-02-04] MEDS ORDERED: ELECTROLYTE-148 SOLN 1,000 ML IV SCH (13:45)
[2021-02-04 14:49] VITALS: BMI 38.2
[2021-02-04] MEDS ORDERED: OXYTOCIN 20 UNITS in 0.9% NS 20 UNIT/1,000 ML INFUS.BAG IV ONE ×2 (14:56→17:08)
[2021-02-04] MEDS ORDERED: ONDANSETRON 4 MG/2 ML VIAL ONE (14:59)
[2021-02-04] MEDS ORDERED: KETOROLAC TROMETHAMINE 30 MG/1 ML VIAL ONE (14:59)
[2021-02-04] MEDS ORDERED: oxyCODONE HCL 5 MG TABLET PO PRN (16:13)
[2021-02-04] MEDS ORDERED: SENNOSIDES/DOCUSATE COMBO (SENNA PLUS) TABLET (UD) PO PRN (16:13)
[2021-02-04] MEDS ORDERED: IBUPROFEN 800 MG/8 ML IJ IVPB PRN (16:13)
[2021-02-04] MEDS ORDERED: BENZOCAINE 20% 57 GM BOTTLE TP PRN (16:13)
[2021-02-04] MEDS ORDERED: METHYLERGONOVINE MALEATE 0.2 MG/1 ML AMP IM PRN (16:13)
[2021-02-04] MEDS ORDERED: OXYTOCIN 20 UNITS in 0.9% NS 20 UNIT/1,000 ML INFUS.BAG IV SCH (16:15)
[2021-02-04] MEDS: FERROUS SO4 325 MG TABLET (FP) PO SCH (18:56)
[2021-02-05 07:25] LABS: BASO % 0.3 % (0-2.0); HEMATOCRIT 20.6 % (32.4-45.2); LYMPH % 10.4 % (8-40); MCH 29.1 pg (25.7-33.7); MCHC 33.3 g/dl (32.0-36.0); MEAN CELL VOLUME 87.4 fl (80-96); MEAN PLT VOLUME 9.8 fl (7.5-11.1); MONO % 8.1 % (3.8-10.2); NEUT % 81.2 % (42.8-82.8); PLATELET COUNT 153 10^3/uL (134-434); RBC 2.35 M/mm3 (3.60-5.2); RDW 15.8 % (11.6-15.6); WHITE BLOOD COUNT 8.9 K/mm3 (4.0-10.0)
[2021-02-05 07:27] LABS: HEMOGLOBIN 6.9 GM/dL (10.7-15.3)
[2021-02-05] MEDS: FERROUS SO4 325 MG TABLET (FP) PO SCH ×2 (09:05→16:41)
[2021-02-05] MEDS: IBUPROFEN 600 MG TABLET (FP) PO PRN ×3 (09:05→21:13)
[2021-02-05] MEDS: SIMETHICONE 80 MG TAB.CHEW (FP) PO PRN ×2 (09:05→18:37)
[2021-02-05] MEDS: PRENATAL VITAMINS W/ FOLIC ACID TABLET (FP) PO SCH (09:43)
[2021-02-05] MEDS ORDERED: BISACODYL 10 MG SUPP.RECT RC PRN (16:13)
[2021-02-05] MEDS: oxyCODONE HCL 5 MG TABLET PO PRN (18:37)
[2021-02-06] MEDS: SIMETHICONE 80 MG TAB.CHEW (FP) PO PRN ×2 (02:11→12:39)
[2021-02-06] MEDS: IBUPROFEN 600 MG TABLET (FP) PO PRN ×2 (02:14→09:38)
[2021-02-06] MEDS: ACETAMINOPHEN 325 MG TABLET (FP) PO PRN ×2 (02:15→12:39)
[2021-02-06] MEDS: oxyCODONE HCL 5 MG TABLET PO PRN (02:16)
[2021-02-06 07:35] LABS: BASO % 0.2 % (0-2.0); EOS % 0.4 % (0-4.5); HEMATOCRIT 21.8 % (32.4-45.2); HEMOGLOBIN 7.6 GM/dL (10.7-15.3); LYMPH % 14.7 % (8-40); MCH 30.5 pg (25.7-33.7); MCHC 35.1 g/dl (32.0-36.0); MEAN CELL VOLUME 87.1 fl (80-96); MEAN PLT VOLUME 10.4 fl (7.5-11.1); MONO % 11.1 % (3.8-10.2); NEUT % 73.6 % (42.8-82.8); PLATELET COUNT 152 10^3/uL (134-434); RDW 14.9 % (11.6-15.6); WHITE BLOOD COUNT 7.9 K/mm3 (4.0-10.0)
[2021-02-06] MEDS: FERROUS SO4 325 MG TABLET (FP) PO SCH ×2 (08:55→17:28)
[2021-02-06] MEDS ORDERED: ACETAMINOPHEN 325 MG TABLET (FP) PO PRN (09:33)
[2021-02-06] MEDS: PRENATAL VITAMINS W/ FOLIC ACID TABLET (FP) PO SCH (09:37)
[2021-02-07] MEDS: ACETAMINOPHEN 325 MG TABLET (FP) PO PRN (01:15)
[2021-02-07] MEDS: IBUPROFEN 600 MG TABLET (FP) PO PRN (01:15)
[2021-02-07] MEDS: SIMETHICONE 80 MG TAB.CHEW (FP) PO PRN (01:16)
[2021-02-07] MEDS: FERROUS SO4 325 MG TABLET (FP) PO SCH (08:00)
[2021-02-07 08:22] LABS: BASO % 0.4 % (0-2.0); EOS % 0.7 % (0-4.5); HEMATOCRIT 27.7 % (32.4-45.2); HEMOGLOBIN 9.4 GM/dL (10.7-15.3); LYMPH % 21.5 % (8-40); MCH 30.3 pg (25.7-33.7); MCHC 34.1 g/dl (32.0-36.0); MEAN PLT VOLUME 10.2 fl (7.5-11.1); MONO % 9.4 % (3.8-10.2); PLATELET COUNT 192 10^3/uL (134-434); RBC 3.11 M/mm3 (3.60-5.2); RDW 15.2 % (11.6-15.6); WHITE BLOOD COUNT 8.1 K/mm3 (4.0-10.0)
[2021-02-07] MEDS: PRENATAL VITAMINS W/ FOLIC ACID TABLET (FP) PO SCH (09:10)
[2021-02-07 13:55] VITALS: BP 106/61; PULSE 105; TEMP 98.1
== END 2021-02-07 13:45 | disposition home or self-care (01) | DRG 540 ==
LOC: JLDR 13:30 → J3W 17:45
PROVIDERS: ADMIT Obstetrics & Gynecology; ATTEND Obstetrics & Gynecology
PROC: 10D00Z1 Extraction of Products of Conception, Low, Open Approach (ICD-10-PCS; principal; 2021-02-04)
PROC: 0DNW0ZZ Release Peritoneum, Open Approach (ICD-10-PCS; 2021-02-04)
PROC: 30233N1 Transfusion of Nonautologous Red Blood Cells into Peripheral Vein, Percutaneous Approach (ICD-10-PCS; 2021-02-05)
DX: O34.211 Maternal care for low transverse scar from previous cesarean delivery (principal); O99.03 Anemia complicating the puerperium; N73.6 Female pelvic peritoneal adhesions (postinfective); Z37.0 Single live birth; Z3A.39 39 weeks gestation of pregnancy
CPT/HCPCS: 36415; 36430; 80053; 85025; 85610; 86780; 86850; 86870; 86900; 86901; 86902; 86922; 88307-TC; C9803; P9058; U0003; U0005

== ENCOUNTER 2022-04-06 18:13 | Emergency (ER) | payer OTHER ==
[2022-04-06 18:53] VITALS: BP 117/65; RESP 18; TEMP 99.3; BMI 34.9
[2022-04-06] MEDS ORDERED: IBUPROFEN 600 MG TABLET (FP) PO ONE ×2 (20:31→20:32)
[2022-04-06 20:51] VITALS: PULSE 86
== END 2022-04-06 22:18 | disposition home or self-care (01) ==
LOC: JER 18:13
DX: J09.X2 Influenza due to identified novel influenza A virus with other respiratory manifestations (principal)
CPT/HCPCS: 0241U-QW; 99283-25